=== PATIENT | male | born 1950 | race Caucasian/White ===

== ENCOUNTER 2018-05-14 07:13 | Inpatient (IN) ==
[2018-05-14] MEDS ORDERED: Sod Chloride 0.9% Inj 1,000 ML IV.SIG ONE (07:47)
[2018-05-14] MEDS ORDERED: Famotidine PF Inj 20 MG/2 ML Vial IV.PUSH ONE (07:47)
--- NOTE | 2018-05-14 07:51 | ED ---
HPI General Chief Complaint: Abdominal Pain Stated Complaint: Upper abd pain x last night Time Seen by Provider: 05/14/18 07:47 Source: patient Mode of arrival: ambulatory Limitations: no limitations History of Present Illness HPI narrative: 67-year-old male patient with history of esophagitis and gastritis, diabetes, presents to the ER today with 1 day history of nausea, epigastric abdominal pains which she currently states that 8 out of 10. He states that last night he took antacids and it did get a little bit better for him. He denies any vomiting, fevers, diarrhea, or other symptoms. He states it feels like a fullness almost like gas. Related Data Home Medications Medication Instructions Recorded Confirmed aspirin [Aspirin Low Dose] 1 tab PO DAILY 05/14/18 05/14/18 atorvastatin 10 mg PO DAILY 05/14/18 05/14/18 canagliflozin [Invokana] 1 tab PO DAILY 05/14/18 05/14/18 doxazosin 8 mg PO DAILY 05/14/18 05/14/18 glimepiride 2 mg PO TID 05/14/18 05/14/18 metformin 500 mg PO TID 05/14/18 05/14/18 pantoprazole 40 mg PO DAILY 05/14/18 05/14/18 Allergies Allergy/AdvReac Type Severity Reaction Status Date / Time shellfish derived Allergy Severe Swelling Verified 05/14/18 07:20 of Lip/Tongue/Throat penicillin G Allergy Mild HIVES Verified 05/14/18 07:20 Review of Systems Except as stated in HPI: all other systems reviewed are negative [facility] Medical History Medical History Diabetes (Acute) GERD (gastroesophageal reflux disease) (Acute) High cholesterol (Acute) History of seizure (Acute) Surgical History Surgical History History of rotator cuff surgery (Acute) Status post correction of deviated nasal septum (Acute) Family History Family History Mother History of pancreatic cancer Father History of heart disease History of diabetes mellitus Social History Social History Substance History: No History of Abuse Second Hand Smoke Exposure: No Smoking Status: Former smoker Tobacco Type: Cigarettes Number of Pack-Years (if former smoker): 70 How Often Do You Have a Drink Containing Alcohol: Monthly or less Recent Travel in [facility] within the Last 8 Weeks: No Recent Out of Country Travel within the Last 8 Weeks: No Immunization History Tetanus Immunization: Unsure Hx Influenza Vaccine This Season: Yes Exam Narrative Exam Narrative: GENERAL: Well-developed elderly white male patient currently in mild distress. Awake and oriented 3. SKIN: Focused skin assessment warm/dry. HEAD: Atraumatic. Normocephalic. EYES: Pupils equal and round. No scleral icterus. No injection or drainage. ENT: No nasal bleeding or discharge. Mucous membranes pink and moist. NECK: Trachea midline. No JVD. CARDIOVASCULAR: Regular rate and rhythm. No murmur appreciated. RESPIRATORY: No accessory muscle use. Clear to auscultation. Breath sounds equal bilaterally. GASTROINTESTINAL: Abdomen soft, mild epigastric tenderness without guarding or rebound, nondistended. Hepatic and splenic margins not palpable. MUSCULOSKELETAL: No obvious deformities. No clubbing. No cyanosis. No edema. NEUROLOGICAL: Awake and alert. No obvious cranial nerve deficits. Motor grossly within normal limits. Normal speech. PSYCHIATRIC: Appropriate mood and affect; insight and judgment normal. Course Initial Documented Vital Signs Temperature 99.3 F 05/14/18 07:15 Pulse Rate 96 H 05/14/18 07:15 Respiratory Rate 18 05/14/18 07:15 Blood Pressure 120/59 L 05/14/18 07:15 Pulse Oximetry 97 05/14/18 07:15 Last Documented Vital Signs Temperature 98.5 F 05/17/18 04:00 Pulse Rate 54 L 05/17/18 05:55 Respiratory Rate 18 05/17/18 05:55 Blood Pressure 182/86 H 05/17/18 05:55 Pulse Oximetry 97 05/17/18 04:00 Sign Out Sign Out Data: Patient Sign Out occurred on 05/14/18 at 08:53. Patient's care was discussed, and care was transferred from Keturah Botello MD to Myriam Reyes DO. Sign Out Comment: awaiting labs. s/o to dr. reyes ar 7am. Last updated by Keturah Botello MD at 05/14/18 08:49 Post-Handoff Eval: This patient was initially evaluated by previous provider Dr. Harris and signed out to me to follow up labs at change of shift. 67yo M with epigastric abdominal pain since 12:30am associated with nausea and chills. Abdominal pain radiates throughout abdomen. Labs reviewed, no leukocytosis. troponin negative. Glucose is elevated at 298. Normal CO2. Lipase is normal. Total bilirubin is elevated at 3.1. AST is elevated at 1386. ALT is elevated at 965. Alk phos is elevated at 145. Liver enzymes are more elevated than baseline and this is new. UA showed no leukocyte or nitrate. Pt reevaluated at bedside and has epigastric abdominal tenderness and some RLQ ttp as well. Will do CT abd/pelvis. Pt had endoscopy and colonoscopy last year and said there was some pathology with esophagus. Said he follows with [facility]. CT a/p showed mildly distended gallbladder with probable trace pericholecystic fluid. Consider ultrasound for better evaluation of the bladder if there is persistent concern. Normal appendix. Hepatic steatosis. Pt still nauseous so given another dose of zofran. Pain has improved. Pt reevaluated at bedside and does have mild RUQ ttp, mainly epigastric. Said his pain moves around. US gallbladder showed diffuse gallbladder wall thickening. No intraluminal mass or stone visualized in common bile duct. Will admit patient for acute cholecystitis. Discussed with Dr. Brown from general surgery and he recommends admitting patient to medicine, MRCP, GI consult and he will also consult. Discussed with Edu MANN, and accepted to Dr. Wilburn's service. Medical Decision Making MDM Narrative Medical decision making narrative: Please see sign out section. Differential Diagnosis Differential Diagnosis: Gastritis vs. pancreatitis vs. peptic ulcer disease Lab Data Result diagrams: 05/16/18 07:15 05/17/18 06:20 Lab Results 05/14/18 05/14/18 05/14/18 Range/Units 06:50 07:45 07:45 CBC w Diff Auto diff final WBC 8.5 (4.0-11.0) th/mm3 RBC 5.53 (4.50-5.90) mil/mm3 Hgb 17.0 (13.0-17.0) gm/dL Hct 51.0 (39.0-51.0) % MCV 92.2 (80.0-100.0) fL MCH 30.8 (27.0-34.0) pg MCHC 33.3 (32.0-36.0) % RDW 12.9 (11.6-17.2) % Plt Count 160 (150-450) th/mm3 MPV 9.7 (7.0-11.0) fL Neut % (Auto) 88.7 H (16.0-70.0) % Lymph % (Auto) 4.1 L (9.0-44.0) % Charles % (Auto) 5.4 (0.0-8.0) % Eos % (Auto) 0.4 (0.0-4.0) % Baso % (Auto) 1.4 (0.0-2.0) % Neut # (Auto) 7.6 (1.8-7.7) th/mm3 Lymph # (Auto) 0.3 L (1.0-4.8) th/mm3 Charles # (Auto) 0.5 (0.0-0.9) th/mm3 Eos # (Auto) 0.0 (0.0-0.4) th/mm3 Baso # (Auto) 0.1 (0.0-0.2) th/mm3 WBC Differential . Differential Comment . Sodium 136 (136-145) meq/L Potassium 3.9 (3.5-5.1) meq/L Chloride 102 (98-107) meq/L Carbon Dioxide 23.0 (21.0-32.0) meq/L Anion Gap 11 (5-15) meq/L BUN 21 H (7-18) mg/dL Creatinine 1.30 (0.60-1.30) mg/dL Estimated GFR 55 L (>89) mL/min POC Glucose (68-110) mg/dl Random Glucose 298 H (74-106) mg/dL Calcium 9.0 (8.5-10.1) mg/dL Total Bilirubin 3.1 H (0.2-1.0) mg/dL AST 1386 H (15-37) U/L ALT 965 H (12-78) U/L Alkaline Phosphatase 145 H (45-117) U/L Troponin I Less than 0.02 L (0.02-0.05) ng/mL Total Protein 7.5 (6.4-8.2) g/dL Albumin 4.0 (3.4-5.0) g/dL Lipase 142 (73-393) U/L Ur Collection Type Voided Urine Color Yellow (Yellw/Straw) Urine Clarity Clear (Clear) Urine pH 6.0 (5.0-8.5) Ur Specific Wise Less/equal 1.005 (1.002-1.035) Urine Protein Negative (Neg-Trace) mg/dL Urine Glucose (UA) 1000 or greater H (Negative) mg/dL Urine Ketones 15 H (Negative) mg/dL Urine Occult Blood Trace (Negative) Urine Nitrate Negative (Negative) Urine Bilirubin Negative (Negative) Urine Urobilinogen 2.0 H (Less than 2) mg/dL Ur Leukocyte Esterase Negative (Negative) Urine WBC 0-5 (0-5) /hpf Ur Squamous Epith Cells 0-5 (0-5) /hpf Micro UA Comment Culture not ind Urine Culture Comments Culture not ind Hepatitis A IgM Ab (Nonreactive) Hep Bs Antigen (Nonreactive) Hep B Core IgM Ab (Nonreactive) Hep C IgG Ab (Nonreactive) 05/14/18 05/14/18 05/14/18 Range/Units 13:16 17:30 18:00 CBC w Diff Auto diff final WBC 10.8 (4.0-11.0) th/mm3 RBC 5.21 (4.50-5.90) mil/mm3 Hgb 16.0 (13.0-17.0) gm/dL Hct 46.7 (39.0-51.0) % MCV 89.7 (80.0-100.0) fL MCH 30.8 (27.0-34.0) pg MCHC 34.3 (32.0-36.0) % RDW 13.6 (11.6-17.2) % Plt Count 160 (150-450) th/mm3 MPV 8.9 (7.0-11.0) fL Neut % (Auto) 90.0 H (16.0-70.0) % Lymph % (Auto) 3.2 L (9.0-44.0) % Charles % (Auto) 5.2 (0.0-8.0) % Eos % (Auto) 0.2 (0.0-4.0) % Baso % (Auto) 1.4 (0.0-2.0) % Neut # (Auto) 9.7 H (1.8-7.7) th/mm3 Lymph # (Auto) 0.3 L (1.0-4.8) th/mm3 Charles # (Auto) 0.6 (0.0-0.9) th/mm3 Eos # (Auto) 0.0 (0.0-0.4) th/mm3 Baso # (Auto) 0.2 (0.0-0.2) th/mm3 WBC Differential . Differential Comment . Sodium (136-145) meq/L Potassium (3.5-5.1) meq/L Chloride (98-107) meq/L Carbon Dioxide (21.0-32.0) meq/L Anion Gap (5-15) meq/L BUN (7-18) mg/dL Creatinine (0.60-1.30) mg/dL Estimated GFR (>89) mL/min POC Glucose 237 H 183 H (68-110) mg/dl Random Glucose (74-106) mg/dL Calcium (8.5-10.1) mg/dL Total Bilirubin (0.2-1.0) mg/dL AST (15-37) U/L ALT (12-78) U/L Alkaline Phosphatase (45-117) U/L Troponin I (0.02-0.05) ng/mL Total Protein (6.4-8.2) g/dL Albumin (3.4-5.0) g/dL Lipase (73-393) U/L Ur Collection Type Urine Color (Yellw/Straw) Urine Clarity (Clear) Urine pH (5.0-8.5) Ur Specific Wise (1.002-1.035) Urine Protein (Neg-Trace) mg/dL Urine Glucose (UA) (Negative) mg/dL Urine Ketones (Negative) mg/dL Urine Occult Blood (Negative) Urine Nitrate (Negative) Urine Bilirubin (Negative) Urine Urobilinogen (Less than 2) mg/dL Ur Leukocyte Esterase (Negative) Urine WBC (0-5) /hpf Ur Squamous Epith Cells (0-5) /hpf Micro UA Comment Urine Culture Comments Hepatitis A IgM Ab (Nonreactive) Hep Bs Antigen (Nonreactive) Hep B Core IgM Ab (Nonreactive) Hep C IgG Ab (Nonreactive) 05/14/18 05/14/18 05/15/18 Range/Units 18:00 20:06 07:20 CBC w Diff WBC (4.0-11.0) th/mm3 RBC (4.50-5.90) mil/mm3 Hgb (13.0-17.0) gm/dL Hct (39.0-51.0) % MCV (80.0-100.0) fL MCH (27.0-34.0) pg MCHC (32.0-36.0) % RDW (11.6-17.2) % Plt Count (150-450) th/mm3 MPV (7.0-11.0) fL Neut % (Auto) (16.0-70.0) % Lymph % (Auto) (9.0-44.0) % Charles % (Auto) (0.0-8.0) % Eos % (Auto) (0.0-4.0) % Baso % (Auto) (0.0-2.0) % Neut # (Auto) (1.8-7.7) th/mm3 Lymph # (Auto) (1.0-4.8) th/mm3 Charles # (Auto) (0.0-0.9) th/mm3 Eos # (Auto) (0.0-0.4) th/mm3 Baso # (Auto) (0.0-0.2) th/mm3 WBC Differential Differential Comment Sodium 140 (136-145) meq/L Potassium 3.7 (3.5-5.1) meq/L Chloride 106 (98-107) meq/L Carbon Dioxide 23.5 (21.0-32.0) meq/L Anion Gap 11 (5-15) meq/L BUN 19 H (7-18) mg/dL Creatinine 1.30 (0.60-1.30) mg/dL Estimated GFR 55 L (>89) mL/min POC Glucose 184 H (68-110) mg/dl Random Glucose 103 D (74-106) mg/dL Calcium 8.1 L D (8.5-10.1) mg/dL Total Bilirubin 5.2 H (0.2-1.0) mg/dL AST 384 H (15-37) U/L ALT 660 H (12-78) U/L Alkaline Phosphatase 123 H (45-117) U/L Troponin I (0.02-0.05) ng/mL Total Protein 6.7 D (6.4-8.2) g/dL Albumin 3.2 L D (3.4-5.0) g/dL Lipase (73-393) U/L Ur Collection Type Urine Color (Yellw/Straw) Urine Clarity (Clear) Urine pH (5.0-8.5) Ur Specific Wise (1.002-1.035) Urine Protein (Neg-Trace) mg/dL Urine Glucose (UA) (Negative) mg/dL Urine Ketones (Negative) mg/dL Urine Occult Blood (Negative) Urine Nitrate (Negative) Urine Bilirubin (Negative) Urine Urobilinogen (Less than 2) mg/dL Ur Leukocyte Esterase (Negative) Urine WBC (0-5) /hpf Ur Squamous Epith Cells (0-5) /hpf Micro UA Comment Urine Culture Comments Hepatitis A IgM Ab Nonreactive (Nonreactive) Hep Bs Antigen Nonreactive (Nonreactive) Hep B Core IgM Ab Nonreactive (Nonreactive) Hep C IgG Ab Nonreactive (Nonreactive) 05/15/18 05/15/18 05/15/18 Range/Units 11:18 13:55 15:49 CBC w Diff Auto diff final WBC 6.6 (4.0-11.0) th/mm3 RBC 4.98 (4.50-5.90) mil/mm3 Hgb 15.6 (13.0-17.0) gm/dL Hct 45.9 (39.0-51.0) % MCV 92.2 (80.0-100.0) fL MCH 31.3 (27.0-34.0) pg MCHC 33.9 (32.0-36.0) % RDW 13.4 (11.6-17.2) % Plt Count 132 L (150-450) th/mm3 MPV 8.9 (7.0-11.0) fL Neut % (Auto) 79.3 H (16.0-70.0) % Lymph % (Auto) 8.8 L (9.0-44.0) % Charles % (Auto) 8.6 H (0.0-8.0) % Eos % (Auto) 2.7 (0.0-4.0) % Baso % (Auto) 0.6 (0.0-2.0) % Neut # (Auto) 5.2 (1.8-7.7) th/mm3 Lymph # (Auto) 0.6 L (1.0-4.8) th/mm3 Charles # (Auto) 0.6 (0.0-0.9) th/mm3 Eos # (Auto) 0.2 (0.0-0.4) th/mm3 Baso # (Auto) 0.0 (0.0-0.2) th/mm3 WBC Differential . Differential Comment . Sodium (136-145) meq/L Potassium (3.5-5.1) meq/L Chloride (98-107) meq/L Carbon Dioxide (21.0-32.0) meq/L Anion Gap (5-15) meq/L BUN (7-18) mg/dL Creatinine (0.60-1.30) mg/dL Estimated GFR (>89) mL/min POC Glucose 123 H 225 H (68-110) mg/dl Random Glucose (74-106) mg/dL Calcium (8.5-10.1) mg/dL Total Bilirubin (0.2-1.0) mg/dL AST (15-37) U/L ALT (12-78) U/L Alkaline Phosphatase (45-117) U/L Troponin I (0.02-0.05) ng/mL Total Protein (6.4-8.2) g/dL Albumin (3.4-5.0) g/dL Lipase (73-393) U/L Ur Collection Type Urine Color (Yellw/Straw) Urine Clarity (Clear) Urine pH (5.0-8.5) Ur Specific Wise (1.002-1.035) Urine Protein (Neg-Trace) mg/dL Urine Glucose (UA) (Negative) mg/dL Urine Ketones (Negative) mg/dL Urine Occult Blood (Negative) Urine Nitrate (Negative) Urine Bilirubin (Negative) Urine Urobilinogen (Less than 2) mg/dL Ur Leukocyte Esterase (Negative) Urine WBC (0-5) /hpf Ur Squamous Epith Cells (0-5) /hpf Micro UA Comment Urine Culture Comments Hepatitis A IgM Ab (Nonreactive) Hep Bs Antigen (Nonreactive) Hep B Core IgM Ab (Nonreactive) Hep C IgG Ab (Nonreactive) 05/15/18 05/16/18 05/16/18 Range/Units 20:17 07:15 07:15 CBC w Diff Auto diff final WBC 5.5 (4.0-11.0) th/mm3 RBC 4.95 (4.50-5.90) mil/mm3 Hgb 15.0 (13.0-17.0) gm/dL Hct 44.2 (39.0-51.0) % MCV 89.3 (80.0-100.0) fL MCH 30.3 (27.0-34.0) pg MCHC 34.0 (32.0-36.0) % RDW 13.8 (11.6-17.2) % Plt Count 136 L (150-450) th/mm3 MPV 9.7 (7.0-11.0) fL Neut % (Auto) 73.0 H (16.0-70.0) % Lymph % (Auto) 12.7 (9.0-44.0) % Charles % (Auto) 9.9 H (0.0-8.0) % Eos % (Auto) 3.4 (0.0-4.0) % Baso % (Auto) 1.0 (0.0-2.0) % Neut # (Auto) 4.0 (1.8-7.7) th/mm3 Lymph # (Auto) 0.7 L (1.0-4.8) th/mm3 Charles # (Auto) 0.5 (0.0-0.9) th/mm3 Eos # (Auto) 0.2 (0.0-0.4) th/mm3 Baso # (Auto) 0.1 (0.0-0.2) th/mm3 WBC Differential . Differential Comment . Sodium 139 (136-145) meq/L Potassium 3.8 (3.5-5.1) meq/L Chloride 106 (98-107) meq/L Carbon Dioxide 23.3 (21.0-32.0) meq/L Anion Gap 10 (5-15) meq/L BUN 20 H (7-18) mg/dL Creatinine 0.96 (0.60-1.30) mg/dL Estimated GFR 78 L (>89) mL/min POC Glucose 214 H (68-110) mg/dl Random Glucose 150 H (74-106) mg/dL Calcium 8.2 L (8.5-10.1) mg/dL Total Bilirubin 2.5 H (0.2-1.0) mg/dL AST 167 H (15-37) U/L ALT 423 H (12-78) U/L Alkaline Phosphatase 154 H (45-117) U/L Troponin I (0.02-0.05) ng/mL Total Protein 6.4 (6.4-8.2) g/dL Albumin 3.0 L (3.4-5.0) g/dL Lipase (73-393) U/L Ur Collection Type Urine Color (Yellw/Straw) Urine Clarity (Clear) Urine pH (5.0-8.5) Ur Specific Wise (1.002-1.035) Urine Protein (Neg-Trace) mg/dL Urine Glucose (UA) (Negative) mg/dL Urine Ketones (Negative) mg/dL Urine Occult Blood (Negative) Urine Nitrate (Negative) Urine Bilirubin (Negative) Urine Urobilinogen (Less than 2) mg/dL Ur Leukocyte Esterase (Negative) Urine WBC (0-5) /hpf Ur Squamous Epith Cells (0-5) /hpf Micro UA Comment Urine Culture Comments Hepatitis A IgM Ab (Nonreactive) Hep Bs Antigen (Nonreactive) Hep B Core IgM Ab (Nonreactive) Hep C IgG Ab (Nonreactive) 05/16/18 05/16/18 05/16/18 Range/Units 08:02 11:53 17:12 CBC w Diff WBC (4.0-11.0) th/mm3 RBC (4.50-5.90) mil/mm3 Hgb (13.0-17.0) gm/dL Hct (39.0-51.0) % MCV (80.0-100.0) fL MCH (27.0-34.0) pg MCHC (32.0-36.0) % RDW (11.6-17.2) % Plt Count (150-450) th/mm3 MPV (7.0-11.0) fL Neut % (Auto) (16.0-70.0) % Lymph % (Auto) (9.0-44.0) % Charles % (Auto) (0.0-8.0) % Eos % (Auto) (0.0-4.0) % Baso % (Auto) (0.0-2.0) % Neut # (Auto) (1.8-7.7) th/mm3 Lymph # (Auto) (1.0-4.8) th/mm3 Charles # (Auto) (0.0-0.9) th/mm3 Eos # (Auto) (0.0-0.4) th/mm3 Baso # (Auto) (0.0-0.2) th/mm3 WBC Differential Differential Comment Sodium (136-145) meq/L Potassium (3.5-5.1) meq/L Chloride (98-107) meq/L Carbon Dioxide (21.0-32.0) meq/L Anion Gap (5-15) meq/L BUN (7-18) mg/dL Creatinine (0.60-1.30) mg/dL Estimated GFR (>89) mL/min POC Glucose 134 H 119 H 177 H (68-110) mg/dl Random Glucose (74-106) mg/dL Calcium (8.5-10.1) mg/dL Total Bilirubin (0.2-1.0) mg/dL AST (15-37) U/L ALT (12-78) U/L Alkaline Phosphatase (45-117) U/L Troponin I (0.02-0.05) ng/mL Total Protein (6.4-8.2) g/dL Albumin (3.4-5.0) g/dL Lipase (73-393) U/L Ur Collection Type Urine Color (Yellw/Straw) Urine Clarity (Clear) Urine pH (5.0-8.5) Ur Specific Wise (1.002-1.035) Urine Protein (Neg-Trace) mg/dL Urine Glucose (UA) (Negative) mg/dL Urine Ketones (Negative) mg/dL Urine Occult Blood (Negative) Urine Nitrate (Negative) Urine Bilirubin (Negative) Urine Urobilinogen (Less than 2) mg/dL Ur Leukocyte Esterase (Negative) Urine WBC (0-5) /hpf Ur Squamous Epith Cells (0-5) /hpf Micro UA Comment Urine Culture Comments Hepatitis A IgM Ab (Nonreactive) Hep Bs Antigen (Nonreactive) Hep B Core IgM Ab (Nonreactive) Hep C IgG Ab (Nonreactive) 05/16/18 05/17/18 Range/Units 23:05 06:20 CBC w Diff WBC (4.0-11.0) th/mm3 RBC (4.50-5.90) mil/mm3 Hgb (13.0-17.0) gm/dL Hct (39.0-51.0) % MCV (80.0-100.0) fL MCH (27.0-34.0) pg MCHC (32.0-36.0) % RDW (11.6-17.2) % Plt Count (150-450) th/mm3 MPV (7.0-11.0) fL Neut % (Auto) (16.0-70.0) % Lymph % (Auto) (9.0-44.0) % Charles % (Auto) (0.0-8.0) % Eos % (Auto) (0.0-4.0) % Baso % (Auto) (0.0-2.0) % Neut # (Auto) (1.8-7.7) th/mm3 Lymph # (Auto) (1.0-4.8) th/mm3 Charles # (Auto) (0.0-0.9) th/mm3 Eos # (Auto) (0.0-0.4) th/mm3 Baso # (Auto) (0.0-0.2) th/mm3 WBC Differential Differential Comment Sodium 140 (136-145) meq/L Potassium 3.7 (3.5-5.1) meq/L Chloride 107 (98-107) meq/L Carbon Dioxide (21.0-32.0) meq/L Anion Gap (5-15) meq/L BUN (7-18) mg/dL Creatinine (0.60-1.30) mg/dL Estimated GFR (>89) mL/min POC Glucose 179 H (68-110) mg/dl Random Glucose (74-106) mg/dL Calcium (8.5-10.1) mg/dL Total Bilirubin (0.2-1.0) mg/dL AST (15-37) U/L ALT (12-78) U/L Alkaline Phosphatase (45-117) U/L Troponin I (0.02-0.05) ng/mL Total Protein (6.4-8.2) g/dL Albumin (3.4-5.0) g/dL Lipase (73-393) U/L Ur Collection Type Urine Color (Yellw/Straw) Urine Clarity (Clear) Urine pH (5.0-8.5) Ur Specific Wise (1.002-1.035) Urine Protein (Neg-Trace) mg/dL Urine Glucose (UA) (Negative) mg/dL Urine Ketones (Negative) mg/dL Urine Occult Blood (Negative) Urine Nitrate (Negative) Urine Bilirubin (Negative) Urine Urobilinogen (Less than 2) mg/dL Ur Leukocyte Esterase (Negative) Urine WBC (0-5) /hpf Ur Squamous Epith Cells (0-5) /hpf Micro UA Comment Urine Culture Comments Hepatitis A IgM Ab (Nonreactive) Hep Bs Antigen (Nonreactive) Hep B Core IgM Ab (Nonreactive) Hep C IgG Ab (Nonreactive) Imaging Data Radiologist's impression: Chest X-Ray 05/14/18 07:47 CONCLUSION: 1. No acute cardiopulmonary disease. Abdomen/Pelvis CT 05/14/18 08:56 CONCLUSION: 1. Mildly distended gallbladder with probable trace pericholecystic fluid. Consider ultrasound examination for better evaluation of the gallbladder if there is persistent significant clinical concern. 2. Hepatic steatosis. 3. Colonic diverticulosis without evidence for diverticulitis. 4. Normal appendix. Gallbladder Ultrasound 05/14/18 09:58 CONCLUSION: 1. Diffuse gallbladder wall thickening. 2. Increased hepatic echogenicity, potentially indicative of steatosis. Cholangiopancreatography MRI 05/14/18 12:37 CONCLUSION: 1. No stones identified within the biliary system. The common bile duct is normal in caliber at 2.5 mm. 2. Abnormal appearance of the gallbladder with mild gallbladder wall thickening and pericholecystic fluid. In the appropriate clinical setting this would raise the concern for a possible cholecystitis ECG Data EKG Prior to Arrival: No Attestation: I personally reviewed and interpreted this ECG as follows: Interpretation: NSR 68bpm. Normal axis. Mild ST depression diffusely. No significant ST elevation. Discharge Plan Discharge Disposition Patient Disposition: 30 Still Patient Discharge Condition Condition: Stable Discharge Details Diagnosis: Acute cholecystitis Physicians Team ED Provider: Myriam Reyes Primary Care Provider: Lm Srivastava Attending Provider: Nabil Wilburn Discharge Interventions Interventions: ED Discharge Assessment Last Done: 05/14/18 13:25 Vital Signs Last Done: 05/14/18 12:33 Status ED Status: Left Department Discharge Information Discharge Date/Time: 05/14/18 13:27
[2018-05-14 08:04] LABS: Bilirubin,Urine Negative (Negative); Clarity,Urine Clear (Clear); Color,Urine Yellow (Yellw/Straw); Leukocyte Esterase,Urine Negative (Negative); Nitrite,Urine Negative (Negative); Specific Gravity,Urine Less/Equal 1.005 (1.002-1.035)
[2018-05-14 08:11] LABS: Squamous Epithelial Cell,Urine 0-5 /hpf (0-5); WBC,Urine 0-5 /hpf (0-5)
[2018-05-14 08:12] LABS: Chloride 102 meq/L (98-107); Potassium 3.9 meq/L (3.5-5.1); Sodium 136 meq/L (136-145)
--- NOTE | 2018-05-14 08:12 | XR ---
EXAM DATE: 05/14/2018 8:08 AM EDT AGE/SEX: 67 years / Male INDICATIONS: Chest pain CLINICAL DATA: This is the patient's initial encounter. Patient reports that signs and symptoms have been present for 1 day and indicates a pain score of 8/10. MEDICAL/SURGICAL HISTORY: Gastroesophageal reflux disease. Diabetes. Hypercholesterolemia. No ne. COMPARISON: POI, XR CHEST PA AND LAT, 10/14/2016. . FINDINGS: A single AP view of the chest demonstrates the lungs to be symmetrically aerated without evidence of mass, infiltrate or effusion. The cardiomediastinal contours are unremarkable. Osseous structures a re intact. CONCLUSION: 1. No acute cardiopulmonary disease. Electronically signed by: Vj Spangler MD 05/14/2018 8:10 AM EDT
[2018-05-14 08:16] LABS: Anion Gap 11 meq/L (5-15); Blood Urea Nitrogen 21 mg/dL (7-18); Glucose,Random 298 mg/dL (74-106); Lipase 142 U/L (73-393)
[2018-05-14 08:18] LABS: Alanine Aminotransferase 965 U/L (12-78)
[2018-05-14 08:19] LABS: Glomerular Filtration Rate 55 mL/min (>89)
[2018-05-14 08:20] LABS: Total Protein 7.5 g/dL (6.4-8.2)
[2018-05-14 08:22] LABS: Alkaline Phosphatase 145 U/L (45-117)
[2018-05-14 08:26] LABS: Aspartate Aminotransferase 1386 U/L (15-37)
[2018-05-14 08:43] LABS: Baso # (Auto) 0.1 th/mm3 (0.0-0.2); Baso % (Auto) 1.4 % (0.0-2.0); Eos % (Auto) 0.4 % (0.0-4.0); Lymph # (Auto) 0.3 th/mm3 (1.0-4.8); Lymph % (Auto) 4.1 % (9.0-44.0); Mean Corpuscular HGB Conc 33.3 % (32.0-36.0); Mean Corpuscular Hemoglobin 30.8 pg (27.0-34.0); Mean Corpuscular Volume 92.2 fL (80.0-100.0); Mean Platelet Volume 9.7 fL (7.0-11.0); Mono # (Auto) 0.5 th/mm3 (0.0-0.9); Mono % (Auto) 5.4 % (0.0-8.0); Neut # (Auto) 7.6 th/mm3 (1.8-7.7); Neut % (Auto) 88.7 % (16.0-70.0); Platelet Count 160 th/mm3 (150-450); Red Blood Count 5.53 mil/mm3 (4.50-5.90); Red Cell Distribution Width 12.9 % (11.6-17.2); White Blood Count 8.5 th/mm3 (4.0-11.0)
--- NOTE | 2018-05-14 09:53 | CT ---
EXAM DATE: 05/14/2018 9:44 AM EDT AGE/SEX: 67 years / Male INDICATIONS: Epigastric pain. Nausea. CLINICAL DATA: This is the patient's initial encounter. Patient reports that signs and symptoms have been present for 1 day and indicates a pain score of 7/10. MEDICAL/SURGICAL HISTORY: Gastroesophageal reflux disease. Diabetes. Carcinoma, prostatic. No ne. ORAL CONTRAST: No oral contrast ingested. RADIATION DOSE: 9.29 CTDI (mGy) COMPARISON: PO[facility], CT ABDOMEN AND PELVIS W AND W/O CONTRAST, 09/22/2017. . TECHNIQUE: Multiple contiguous axial images were obtained through the abdomen and pelvis following b olus infusion of 90 ml Omnipaque 350 (iohexol) nonionic water-soluble contrast as a single exam dos e. No oral contrast ingested. Using automated exposure control and adjustment of the mA and/or kV ac cording to patient size, radiation dose was kept as low as reasonably achievable to obtain optimal di agnostic quality images. DICOM format image data is available electronically for review and comparis on. FINDINGS: LOWER LUNGS: The visualized lower lungs are clear. LIVER: Diffusely decreased hepatic density without focal mass or intrahepatic ductal dilatation. Gal lbladder is mildly distended with probable trace pericholecystic fluid. SPLEEN: Homogeneous density without enlargement. PANCREAS: Partially fatty replaced without mass or calcification. KIDNEYS: Kidneys demonstrate symmetrical enhancement and are symmetrical in size without evidence fo r radiopaque renal calculi or hydronephrosis. ADRENAL GLANDS: Unremarkable. AORTA: Makenna-aneurysmal. BOWEL/MESENTERY: Mild sigmoid diverticulosis and scattered colonic diverticula without inflammatory change. No significantly dilated bowel loops. Appendix is visualized and normal in appearance. No syl e fluid or drainable fluid collections. No free air. ABDOMINAL WALL: Intact. RETROPERITONEUM: No evidence of adenopathy in the retrocrural, para-aortic, or deep pelvic regions. BLADDER: Contours are smooth. REPRODUCTIVE: Nonspecific enlargement containing radiation seeds. BONY STRUCTURES: Degenerative spondylosis of the lower lumbar spine. CONCLUSION: 1. Mildly distended gallbladder with probable trace pericholecystic fluid. Consider ultrasound exami nation for better evaluation of the gallbladder if there is persistent significant clinical concern. 2. Hepatic steatosis. 3. Colonic diverticulosis without evidence for diverticulitis. 4. Normal appendix. Electronically signed by: Vj Spangler MD 05/14/2018 9:52 AM EDT
--- NOTE | 2018-05-14 09:58 | ECG ---
Date Performed: 05/14/2018 Time Performed: 07:55:31 PTAGE: 67 years EKG: Sinus rhythm NONSPECIFIC T-WAVE ABNORMALITY BORDERLINE ECG PREVIOUS TRACING : 09/17/2011 19.59 Compared to previous tracing, nonspecific T wave abnormalit y is now present. DOCTOR: Rahul Gilliam Interpretating Date/Time 05/14/2018 09:57:01
--- NOTE | 2018-05-14 11:40 | US ---
EXAM DATE: 05/14/2018 11:21 AM EDT AGE/SEX: 67 years / Male INDICATIONS: Right upper quadrant pain. CLINICAL DATA: This is the patient's initial encounter. Patient reports that signs and symptoms have been present for 1 day and indicates a pain score of 3/10. MEDICAL/SURGICAL HISTORY: Diabetes. Gastroesophageal reflux disease. Hypercholesterolemia. No ne. COMPARISON: [facility], CT ABDOMEN & PELVIS W CONTRAST, 05/14/2018. . MEASUREMENTS: Liver:__ 18.1 cm. Common Bile Duct:__ 5mm. FINDINGS: Liver: Increased echotexture without focal lesion or ductal dilation. Portal Vein: Hepatopedal flow seen in portal vein. Common Duct: No intraluminal mass or stone visualized. Gallbladder: No mobile stones. Mild diffuse wall thickening. Pancreas: Unremarkable Right Kidney: Normal echotexture and cortical thickness. No mass or hydronephrosis. Other: CONCLUSION: 1. Diffuse gallbladder wall thickening. 2. Increased hepatic echogenicity, potentially indicative of steatosis. Electronically signed by: Campos Ibarra MD 05/14/2018 11:39 AM EDT
[2018-05-14] MEDS ORDERED: Dextrose 50% in Water 50 ML Vial IV.PUSH PRN (12:43)
[2018-05-14] MEDS ORDERED: Morphine Sulfate Inj 2 MG/ML Vial IV.PUSH PRN (12:45)
--- NOTE | 2018-05-14 14:22 | P.HP ---
History of Present Illness Primary Care Physician: Lm Srivastava MD Chief Complaint: Abdominal pain History of Present Illness: 67-year-old male with known history of hyperlipidemia, diabetes who presented to the hospital because of acute onset abdominal pain. Patient states that he was in his normal state of health until last evening approximately 12 to 12:30 AM. When he got sudden onset abdominal pain located in the upper abdomen. Patient cannot lay flat, he states that the pain was so severe he had to get up and move around. It hurt whenever he walks. He cannot sit still. Pain was worse when he laid down. He did take 2 indigestion pills which did help with some of the discomfort. He was able to lay down to go to sleep. Then he was woke up at approximately 4 AM this morning with the severe pain again. Again it was a 8/10 on a pain scale where he could not get comfortable no matter what position he got his body into. He came to emergency department for evaluation. Patient was found to have abnormalities with elevated liver enzymes as well as signs of cholecystitis. ER physician did contact general surgery about the findings. They recommended that the patient undergo MRCP with GI consult for further evaluation and management. Upon seeing the patient he appears to be feeling much better. Pain is controlled. Patient denied any nausea, vomiting, diarrhea, constipation, melena, hematochezia. - Diagnosis (1) Cholecystitis (2) Elevated liver enzymes (3) Abdominal pain Inpatient Certification: I certify that the inpatient services were ordered in accordance with Medicare regulations governing the order. This includes certification that hospital inpatient services are reasonable and necessary and in the case of services not specified as inpatient-only under 42 CFR 419.22(n), that they are appropriately provided as inpatient services in accordance to with the 2-midnight benchmark under 43 CFR 412.3(e) Estimated Total Length of Stay (Days): 3 Plans for Post Hospital Care: Home Review of Systems All other systems reviewed negative except as stated in HPI Gastrointestinal: Reports abdominal pain, Reports nausea PMFSH - History History Provided By: Patient - Medical History Medical History: Medical History (Last Updated 05/14/18 @ 14:10 by MACKENZIE Deleon) Diabetes GERD (gastroesophageal reflux disease) High cholesterol History of seizure - Surgical History Surgical History: Surgical History (Last Updated 05/14/18 @ 14:10 by MACKENZIE Deleon) History of rotator cuff surgery Status post correction of deviated nasal septum - Family History Family History: Family History (Last Updated 05/14/18 @ 14:11 by MACKENZIE Deleon) Mother History of pancreatic cancer Father History of heart disease History of diabetes mellitus - Tobacco History Second Hand Smoke Exposure: No Tobacco Use In Past 30 Days: No Smoking Status: Former smoker Tobacco Type: Cigarettes Number of Pack Years (if former smoker): 70 - Alcohol History How Often Do You Have a Drink Containing Alcohol: Monthly or less - Substance Use History Substance History: No History of Abuse - Travel History Recent Travel in the [place] Within the Last 8 Weeks: No Recent Travel Out of the Country Within the Last 8 Weeks: No - Immunization History Tetanus Immunization: Unsure Hx Influenza Vaccine This Season: Yes Medications and Allergies Active Medications: Active Medications Dextrose (D50w Vial) 50 ml IV.PUSH UNSCH PRN PRN Reason: PER HYPOGLYCEMIA PROTOCOL Famotidine (Pepcid Pf Inj) 20 mg IV.PUSH Q12HR LEATHA Glucagon (Glucagon Inj) 1 mg OTHER PRN PRN PRN Reason: for Hypoglycemia Protocol Lactated Ringer's (Lr 1000 Ml Inj) 1,000 mls @ 125 mls/hr IV.CONT .Q8H LEATHA Last Admin: 05/14/18 12:57 Dose: 125 mls/hr Insulin Aspart (Novolog Insulin Correctional Sugar Inj) 0 unit SQ ACHS LEATHA; Protocol Morphine Sulfate (Morphine Inj) 2 mg IV.PUSH Q3H PRN PRN Reason: PAIN SCALE 1 TO 10 Ondansetron HCl (Zofran Inj) 4 mg IV.PUSH Q6H PRN PRN Reason: NAUSEA OR VOMITING Sodium Chloride (Ns Flush) 2 ml IV.FLUSH BID LEATHA Sodium Chloride (Ns Flush) 2 ml IV.FLUSH PRN PRN PRN Reason: FLUSH AFTER USING IV ACCESS Allergies Allergy/AdvReac Type Severity Reaction Status Date / Time shellfish derived Allergy Severe Swelling Verified 05/14/18 07:20 of Lip/Tongue/Throat penicillin G Allergy Mild HIVES Verified 05/14/18 07:20 Home Medications Medication Instructions Recorded Confirmed Type aspirin [Aspirin Low Dose] 1 tab PO DAILY 05/14/18 05/14/18 History atorvastatin 10 mg PO DAILY 05/14/18 05/14/18 History canagliflozin [Invokana] 1 tab PO DAILY 05/14/18 05/14/18 History doxazosin 8 mg PO DAILY 05/14/18 05/14/18 History glimepiride 2 mg PO TID 05/14/18 05/14/18 History metformin 500 mg PO TID 05/14/18 05/14/18 History pantoprazole 40 mg PO DAILY 05/14/18 05/14/18 History Exam Vital signs: Vital Signs 05/14/18 07:15 05/14/18 07:32 05/14/18 07:54 Temperature 99.3 F Pulse Rate 96 H 93 H Respiratory Rate 18 18 Blood Pressure 120/59 L 144/71 H Pulse Oximetry 97 96 97 05/14/18 09:07 05/14/18 12:33 05/14/18 13:56 Temperature 100.8 F H Pulse Rate 94 H 96 H 95 H Respiratory Rate 18 18 18 Blood Pressure 120/58 L 139/74 154/73 H Pulse Oximetry 96 99 96 Intake & Output 05/13/18 05/14/18 05/14/18 18:59 06:59 18:59 Intake Total 1000 / 1000 Output Total 550 / 550 Balance 450 / 450 Weight 74.3 kg Intake: IV 1000 / 1000 NS Inj 1,000 ML @ Wide Open IV. 1000 / 1000 SIG BOLUS ONE Rx#:[id number] Output: Urine 550 / 550 Narrative: GENERAL: Well-developed, well-nourished, in no acute distress. alert and orientated HEENT: Head is normocephalic without any lesions or masses noted. Facial features are symmetric. Eyes: Pupils equal round reactive to light. Extraocular muscles are intact. Conjunctivae were clear. Oropharyngeal: Pharynx without any erythema edema. Tongue is midline without deviation. Buccal mucosa is moist without any masses or lesions NECK: Supple without any masses. Trachea midline no deviation. No JVD, no bruits are appreciated CARDIAC: Regular rhythm, regular rate. S1/S2 are heard. No murmurs gallops or rubs. LUNGS: Clear to auscultation bilaterally. No wheeze, rhonchi or rales. No use of accessory muscles on inspiration or expiration. ABDOMEN: Soft, main tenderness is noted in the right upper quadrant. Negative Kaur.. Nondistended. Bowel sounds heard in all 4 quadrants. No organomegaly or masses. Negative rebound, negative guarding EXTREMITIES: No edema, pulses are equal bilaterally. No cyanosis or clubbing NEUROLOGY: Mood and affect appear appropriate. Cranial nerves II through XII grossly intact. Muscle strength 5/5 in upper and lower extremities bilaterally. Deep tendon reflexes are 2+ in upper and lower extremities bilaterally. Results - Labs CBC & Chem 7: 05/14/18 07:45 05/14/18 07:45 Labs: Laboratory Results - last 24 hr 05/14/18 05/14/18 05/14/18 06:50 07:45 07:45 CBC w Diff Auto diff final WBC 8.5 RBC 5.53 Hgb 17.0 Hct 51.0 MCV 92.2 MCH 30.8 MCHC 33.3 RDW 12.9 Plt Count 160 MPV 9.7 Neut % (Auto) 88.7 H Lymph % (Auto) 4.1 L [place] % (Auto) 5.4 Eos % (Auto) 0.4 Baso % (Auto) 1.4 Neut # (Auto) 7.6 Lymph # (Auto) 0.3 L [place] # (Auto) 0.5 Eos # (Auto) 0.0 Baso # (Auto) 0.1 WBC Differential . Differential Comment . Sodium 136 Potassium 3.9 Chloride 102 Carbon Dioxide 23.0 Anion Gap 11 BUN 21 H Creatinine 1.30 Estimated GFR 55 L POC Glucose Random Glucose 298 H Calcium 9.0 Total Bilirubin 3.1 H AST 1386 H ALT 965 H Alkaline Phosphatase 145 H Troponin I Less than 0.02 L Total Protein 7.5 Albumin 4.0 Lipase 142 Ur Collection Type Voided Urine Color Yellow Urine Clarity Clear Urine pH 6.0 Ur Specific [place] Less/equal 1.005 Urine Protein Negative Urine Glucose (UA) 1000 or greater H Urine Ketones 15 H Urine Occult Blood Trace Urine Nitrate Negative Urine Bilirubin Negative Urine Urobilinogen 2.0 H Ur Leukocyte Esterase Negative Urine WBC 0-5 Ur Squamous Epith Cells 0-5 Micro UA Comment Culture not ind Urine Culture Comments Culture not ind 05/14/18 13:16 CBC w Diff WBC RBC Hgb Hct MCV MCH MCHC RDW Plt Count MPV Neut % (Auto) Lymph % (Auto) [place] % (Auto) Eos % (Auto) Baso % (Auto) Neut # (Auto) Lymph # (Auto) [place] # (Auto) Eos # (Auto) Baso # (Auto) WBC Differential Differential Comment Sodium Potassium Chloride Carbon Dioxide Anion Gap BUN Creatinine Estimated GFR POC Glucose 237 H Random Glucose Calcium Total Bilirubin AST ALT Alkaline Phosphatase Troponin I Total Protein Albumin Lipase Ur Collection Type Urine Color Urine Clarity Urine pH Ur Specific [place] Urine Protein Urine Glucose (UA) Urine Ketones Urine Occult Blood Urine Nitrate Urine Bilirubin Urine Urobilinogen Ur Leukocyte Esterase Urine WBC Ur Squamous Epith Cells Micro UA Comment Urine Culture Comments - Imaging Impressions Chest X-Ray 05/14/18 07:47 CONCLUSION: 1. No acute cardiopulmonary disease. Abdomen/Pelvis CT 05/14/18 08:56 CONCLUSION: 1. Mildly distended gallbladder with probable trace pericholecystic fluid. Consider ultrasound examination for better evaluation of the gallbladder if there is persistent significant clinical concern. 2. Hepatic steatosis. 3. Colonic diverticulosis without evidence for diverticulitis. 4. Normal appendix. Gallbladder Ultrasound 05/14/18 09:58 CONCLUSION: 1. Diffuse gallbladder wall thickening. 2. Increased hepatic echogenicity, potentially indicative of steatosis. Caprini VTE Risk Assessment Caprini VTE Risk Assessment: Moderate/High Risk (score >= 2) Caprini Risk Assessment Model: Point Value = 1 Point Value = 2 Point Value = 3 Point Value = 5 Age 41-60 Minor surgery BMI > 25 kg/m2 Swollen legs Varicose veins or History of unexplained or recurrent spontaneous Oral contraceptives or hormone replacement Sepsis (< 1 month) Serious lung disease, including pneumonia (< 1 month) Abnormal pulmonary function Acute myocardial infarction Congestive heart failure (< 1 month) History of inflammatory bowel disease Medical patient at bed rest Age 61-74 Arthroscopic surgery Major open surgery (> 45 min) Laparoscopic surgery (> 45 min) Malignancy Confined to bed (> 72 hours) Immobilizing plaster cast Central venous access Age >= 75 History of VTE Family history of VTE Factor V Leiden Prothrombin 42702H Lupus anticoagulant Anticardiolipin antibodies Elevated serum homocysteine Heparin-induced thrombocytopenia Other congenital or acquired thrombophilia Stroke (< 1 month) Elective arthroplasty Hip, pelvis, or leg fracture Acute spinal cord injury (< 1 month) Prophylaxis Regimen: Total Risk Factor Score Risk Level Prophylaxis Regimen 0-1 Low Early ambulation 2 Moderate Order ONE of the following: *Sequential Compression Device (SCD) *Heparin 5000 units SQ BID 3-4 Higher Order ONE of the following medications: *Heparin 5000 units SQ TID *Enoxaparin/Lovenox 40 mg SQ daily (WT < 150 kg, CrCl > 30 mL/min) *Enoxaparin/Lovenox 30 mg SQ daily (WT < 150 kg, CrCl > 10-29 mL/min) *Enoxaparin/Lovenox 30 mg SQ BID (WT < 150 kg, CrCl > 30 mL/min) AND/OR *Sequential Compression Device (SCD) 5 or more Highest Order ONE of the following medications: *Heparin 5000 units SQ TID (Preferred with Epidurals) *Enoxaparin/Lovenox 40 mg SQ daily (WT < 150 kg, CrCl > 30 mL/min) *Enoxaparin/Lovenox 30 mg SQ daily (WT < 150 kg, CrCl > 10-29 mL/min) *Enoxaparin/Lovenox 30 mg SQ BID (WT < 150 kg, CrCl > 30 mL/min) AND *Sequential Compression Device (SCD) Assessment and Plan - Assessment (1) Cholecystitis Code(s): K81.9 - Cholecystitis, unspecified Status: Acute (2) Elevated liver enzymes Code(s): R74.8 - Abnormal levels of other serum enzymes Status: Acute (3) Abdominal pain Code(s): R10.9 - Unspecified abdominal pain Status: Acute - Plan 67-year-old male who presented the hospital because of severe abdominal pain. Acute cholecystitis -CT scan did indicate Mildly distended gallbladder with probable trace pericholecystic fluid. Consider ultrasound examination for better evaluation of the gallbladder if there is persistent significant clinical concern. Hepatic steatosis. -Gallbladder ultrasound indicated gallbladder wall thickening -ER physician did discuss with general surgery who recommended MRCP to be performed and GI consult -General surgery consultation and GI consultation has been requested -Awaiting MRCP for further plans -Keep n.p.o., IV fluids, pain control Liver enzyme elevation, hyperbilirubinemia -Likely secondary to acute cholecystitis, possible biliary obstruction -Liver enzymes values indicating an acute process -Awaiting MRCP for further delineation -Check hepatitis panel diabetes -Accu-Cheks with sliding scale insulin DVT prevention -Sequential compression devices
--- NOTE | 2018-05-14 16:06 | MR ---
EXAM DATE: 05/14/2018 3:44 PM EDT AGE/SEX: 67 years / Male INDICATIONS: Cholelithiasis. Abdomen pain for two day. CLINICAL DATA: This is the patient's initial encounter. Patient reports that signs and symptoms have been present for 2 days and indicates a pain score of 8/10. MEDICAL/SURGICAL HISTORY: Carcinoma, prostatic. Diabetes mellitus type II. . Shoulder sx, TMJ sx, Nose sx. COMPARISON: . TECHNIQUE: Multiplanar, multisequence images of the abdomen were obtained without contrast including dedicated cholangiographic images. FINDINGS: The intrahepatic ducts are normal in caliber. The right and left proper hepatic ducts are normal in c aliber. No stones are seen. The common hepatic duct and common bile duct are patent throughout their course. Maximum dimension of the common bile duct is 2.5 mm. No stones are seen. Examination of the gallbladder demonstrates gallbladder wall thickening with a small amount of perich olecystic fluid. Exam would raise the possibility of cholecystitis. No stones are seen within the gal lbladder. The appearance of the liver, spleen, pancreas, adrenal glands and kidneys is within normal limits. No free fluid is seen within the abdomen. No retroperitoneal adenopathy is identified. CONCLUSION: 1. No stones identified within the biliary system. The common bile duct is normal in caliber at 2.5 mm. 2. Abnormal appearance of the gallbladder with mild gallbladder wall thickening and pericholecystic fluid. In the appropriate clinical setting this would raise the concern for a possible cholecystitis Electronically signed by: Jorge L Cowan MD 05/14/2018 4:05 PM EDT
[2018-05-14] MEDS: Insulin NovoLOG Aspart Correctional Sugar Inj SQ SCH ×2 (17:39→21:39)
[2018-05-14 18:11] LABS: Baso # (Auto) 0.2 th/mm3 (0.0-0.2); Baso % (Auto) 1.4 % (0.0-2.0); Eos % (Auto) 0.2 % (0.0-4.0); Hematocrit 46.7 % (39.0-51.0); Lymph # (Auto) 0.3 th/mm3 (1.0-4.8); Lymph % (Auto) 3.2 % (9.0-44.0); Mean Corpuscular HGB Conc 34.3 % (32.0-36.0); Mean Corpuscular Hemoglobin 30.8 pg (27.0-34.0); Mean Corpuscular Volume 89.7 fL (80.0-100.0); Mean Platelet Volume 8.9 fL (7.0-11.0); Mono # (Auto) 0.6 th/mm3 (0.0-0.9); Mono % (Auto) 5.2 % (0.0-8.0); Neut # (Auto) 9.7 th/mm3 (1.8-7.7); Platelet Count 160 th/mm3 (150-450); Red Blood Count 5.21 mil/mm3 (4.50-5.90); Red Cell Distribution Width 13.6 % (11.6-17.2); White Blood Count 10.8 th/mm3 (4.0-11.0)
[2018-05-14] MEDS: Levofloxacin 500 mg Premix Inj 500 MG/100 ML PIGGYBACK IV.SIG SCH (18:42)
[2018-05-14] MEDS: Famotidine PF Inj 20 MG/2 ML Vial IV.PUSH SCH (20:49)
[2018-05-14 21:13] LABS: Hepatitis A IgM Antibody Nonreactive (Nonreactive); Hepatitits B Surface Antigen Nonreactive (Nonreactive)
[2018-05-14] MEDS ORDERED: Acetaminophen 325 MG Tablet PO PRN (21:26)
[2018-05-15 08:20] LABS: Chloride 106 meq/L (98-107); Potassium 3.7 meq/L (3.5-5.1); Sodium 140 meq/L (136-145)
[2018-05-15 08:39] LABS: Alanine Aminotransferase 660 U/L (12-78); Albumin 3.2 g/dL (3.4-5.0); Alkaline Phosphatase 123 U/L (45-117); Anion Gap 11 meq/L (5-15); Aspartate Aminotransferase 384 U/L (15-37); Blood Urea Nitrogen 19 mg/dL (7-18); Calcium 8.1 mg/dL (8.5-10.1); Carbon Dioxide 23.5 meq/L (21.0-32.0); Glomerular Filtration Rate 55 mL/min (>89); Glucose,Random 103 mg/dL (74-106); Total Protein 6.7 g/dL (6.4-8.2)
[2018-05-15] MEDS: Insulin NovoLOG Aspart Correctional Sugar Inj SQ SCH ×4 (08:49→21:17)
[2018-05-15] MEDS: Famotidine PF Inj 20 MG/2 ML Vial IV.PUSH SCH ×2 (08:50→21:18)
--- NOTE | 2018-05-15 11:20 | P.CONGS ---
[facility] Gen Surgery Consult Note Consult date: 05/15/18 Reason for consult: abdominal pain Narrative: Mr. Burrell is a 67 yo M with abdominal pain. He was awakened from sleep early Thursday morning with severe acute onset upper abdominal pain and nausea. He had salmon and rice for dinner the night before. No diarrhea. He drinks beer occasionally in moderation but did not have one . No previous abdominal surgeries. He was noted to have left shift on CBC and LFTS elevated including bilirubin 3. CT a/p showed mildly distended gallbladder with probable trace pericholecystic fluid. U/s gallbladder shows diffuse mild wall thickening but no visualized stones, and likely hepatic steatosis. MRCP ordered due to elevated LFTs in obstructive pattern shows no stone in the CBD and mildly abnormal gallbladder. Today transaminases and alk phos have decreased and bilirubin increased to 5. His pain persists but not as severely and he is hungry. Review of Systems All other systems reviewed negative except as stated in [facility] - History History Provided By: Patient - Medical History Medical History: Medical History (Last Updated 05/14/18 @ 14:10 by MACKENZIE Deleon) Diabetes GERD (gastroesophageal reflux disease) High cholesterol History of seizure - Surgical History Surgical History: Surgical History (Last Updated 05/14/18 @ 14:10 by MACKENZIE Deleon) History of rotator cuff surgery Status post correction of deviated nasal septum - Family History Family History: Family History (Last Updated 05/14/18 @ 14:11 by MACKENZIE Deleon) Mother History of pancreatic cancer Father History of heart disease History of diabetes mellitus - Tobacco History Second Hand Smoke Exposure: No Tobacco Use In Past 30 Days: No Smoking Status: Former smoker Tobacco Type: Cigarettes Number of Pack Years (if former smoker): 70 - Alcohol History How Often Do You Have a Drink Containing Alcohol: Monthly or less - Substance Use History Substance History: No History of Abuse - Travel History Recent Travel in the [place] Within the Last 8 Weeks: No Recent Travel Out of the Country Within the Last 8 Weeks: No - Immunization History Tetanus Immunization: Unsure Hx Influenza Vaccine This Season: Yes Medications and Allergies Active Medications: Active Medications Acetaminophen (Tylenol) 650 mg PO Q4H PRN PRN Reason: FEVER > 100.4 F Dextrose (D50w Vial) 50 ml IV.PUSH UNSCH PRN PRN Reason: PER HYPOGLYCEMIA PROTOCOL Famotidine (Pepcid Pf Inj) 20 mg IV.PUSH Q12HR [facility] Last Admin: 05/15/18 08:50 Dose: 20 mg Glucagon (Glucagon Inj) 1 mg OTHER PRN PRN PRN Reason: for Hypoglycemia Protocol Lactated Ringer's (Lr 1000 Ml Inj) 1,000 mls @ 125 mls/hr IV.CONT .Q8H [facility] Last Admin: 05/15/18 08:51 Dose: 125 mls/hr Metronidazole/Sodium Chloride (Flagyl 500 Mg Inj) 100 mls @ 100 mls/hr IV.SIG Q8H [facility] Last Admin: 05/15/18 08:50 Dose: 100 mls/hr Levofloxacin/Dextrose (Levaquin 500 Mg Premix Inj) 500 mg in 100 mls @ 100 mls/ hr IV.SIG Q24H [facility] Last Infusion: 05/14/18 20:48 Dose: Infused Insulin Aspart (Novolog Insulin Correctional Sugar Inj) 0 unit SQ ACHS [facility]; Protocol Last Admin: 05/15/18 08:49 Dose: Not Given Morphine Sulfate (Morphine Inj) 2 mg IV.PUSH Q3H PRN PRN Reason: PAIN SCALE 1 TO 10 Ondansetron HCl (Zofran Inj) 4 mg IV.PUSH Q6H PRN PRN Reason: NAUSEA OR VOMITING Sodium Chloride (Ns Flush) 2 ml IV.FLUSH BID [facility] Last Admin: 05/15/18 08:50 Dose: Not Given Sodium Chloride (Ns Flush) 2 ml IV.FLUSH PRN PRN PRN Reason: FLUSH AFTER USING IV ACCESS Allergies Allergy/AdvReac Type Severity Reaction Status Date / Time shellfish derived Allergy Severe Swelling Verified 05/14/18 07:20 of Lip/Tongue/Throat penicillin G Allergy Mild HIVES Verified 05/14/18 07:20 Home Medications Medication Instructions Recorded Confirmed Type aspirin [Aspirin Low Dose] 1 tab PO DAILY 05/14/18 05/14/18 History atorvastatin 10 mg PO DAILY 05/14/18 05/14/18 History canagliflozin [Invokana] 1 tab PO DAILY 05/14/18 05/14/18 History doxazosin 8 mg PO DAILY 05/14/18 05/14/18 History glimepiride 2 mg PO TID 05/14/18 05/14/18 History metformin 500 mg PO TID 05/14/18 05/14/18 History pantoprazole 40 mg PO DAILY 05/14/18 05/14/18 History Exam Vital signs: Vital Signs 05/14/18 12:33 05/14/18 13:56 05/14/18 15:37 Temperature 100.8 F H 100.8 F H Pulse Rate 96 H 95 H 95 H Respiratory Rate 18 18 18 Blood Pressure 139/74 154/73 H 154/73 H Pulse Oximetry 99 96 96 05/14/18 16:00 05/14/18 20:00 05/15/18 00:00 Temperature 100.4 F H 99.1 F Pulse Rate 94 H 93 H Respiratory Rate 18 16 16 Blood Pressure 139/73 135/65 Pulse Oximetry 95 95 05/15/18 07:31 05/15/18 11:10 Temperature 96.9 F L 98.2 F Pulse Rate 87 77 Respiratory Rate 20 20 Blood Pressure 123/66 118/68 Pulse Oximetry 95 95 Intake & Output 05/14/18 05/15/18 05/15/18 18:59 06:59 18:59 Intake Total 1460 / 1460 1200 / 1200 1000 / 1000 Output Total 550 / 550 650 / 650 Balance 910 / 910 550 / 550 1000 / 1000 Weight 74.3 kg 74.9 kg Intake: IV 1100 / 1100 1200 / 1200 1000 / 1000 LR 1000 mL Inj 1,000 ML @ 125 1000 / 1000 1000 / 1000 mls/hr IV.CONT .Q8H [facility] Rx#: [id number] Levaquin 500 mg Premix Inj 500 100 / 100 mg In 100 ml @ 100 mls/hr IV. SIG Q24H [facility] Rx#:[id number] NS Inj 1,000 ML @ Wide Open IV. 1000 / 1000 SIG BOLUS ONE Rx#:[id number] Flagyl 500 MG Inj 100 ML @ 100 100 / 100 100 / 100 mls/hr IV.SIG Q8H [facility] Rx#: [id number] Oral 360 / 360 Output: Urine 550 / 550 650 / 650 Other: # Voids 2 2 # Bowel Movements 0 Narrative: GENERAL: Awake and alert. No acute distress. Cooperative. HEAD: Normocephalic. Atraumatic. EYES: Pupils equal round and reactive to light bilaterally. No scleral icterus. ENT: Moist oral mucosa. NECK: Trachea midline. CHEST: Lungs clear to auscultation bilaterally with no wheezing or rhonchi. No respiratory distress. CARDIOVASCULAR: Regular rate and rhythm. ABDOMEN: Soft, very mild epigastric and RUQ ttp EXTREMITIES: No cyanosis or edema. SKIN: Warm, dry, nonjaundiced. Results - Labs 05/14/18 18:00 05/15/18 07:20 Abnormal lab results 05/14/18 05/14/18 05/14/18 Range/Units 13:16 17:30 18:00 Neut % (Auto) 90.0 H (16.0-70.0) % Lymph % (Auto) 3.2 L (9.0-44.0) % Neut # (Auto) 9.7 H (1.8-7.7) th/mm3 Lymph # (Auto) 0.3 L (1.0-4.8) th/mm3 BUN (7-18) mg/dL Estimated GFR (>89) mL/min POC Glucose 237 H 183 H (68-110) mg/dl Calcium (8.5-10.1) mg/dL Total Bilirubin (0.2-1.0) mg/dL AST (15-37) U/L ALT (12-78) U/L Alkaline Phosphatase (45-117) U/L Albumin (3.4-5.0) g/dL 05/14/18 05/15/18 Range/Units 20:06 07:20 Neut % (Auto) (16.0-70.0) % Lymph % (Auto) (9.0-44.0) % Neut # (Auto) (1.8-7.7) th/mm3 Lymph # (Auto) (1.0-4.8) th/mm3 BUN 19 H (7-18) mg/dL Estimated GFR 55 L (>89) mL/min POC Glucose 184 H (68-110) mg/dl Calcium 8.1 L D (8.5-10.1) mg/dL Total Bilirubin 5.2 H (0.2-1.0) mg/dL AST 384 H (15-37) U/L ALT 660 H (12-78) U/L Alkaline Phosphatase 123 H (45-117) U/L Albumin 3.2 L D (3.4-5.0) g/dL Diabetes panel 05/15/18 Range/Units 07:20 Sodium 140 (136-145) meq/L Potassium 3.7 (3.5-5.1) meq/L Chloride 106 (98-107) meq/L Carbon Dioxide 23.5 (21.0-32.0) meq/L BUN 19 H (7-18) mg/dL Creatinine 1.30 (0.60-1.30) mg/dL Calcium 8.1 L D (8.5-10.1) mg/dL AST 384 H (15-37) U/L ALT 660 H (12-78) U/L Alkaline Phosphatase 123 H (45-117) U/L Total Protein 6.7 D (6.4-8.2) g/dL Albumin 3.2 L D (3.4-5.0) g/dL Calcium panel 05/15/18 Range/Units 07:20 Calcium 8.1 L D (8.5-10.1) mg/dL Albumin 3.2 L D (3.4-5.0) g/dL Pituitary panel 05/15/18 Range/Units 07:20 Sodium 140 (136-145) meq/L Potassium 3.7 (3.5-5.1) meq/L Chloride 106 (98-107) meq/L Carbon Dioxide 23.5 (21.0-32.0) meq/L BUN 19 H (7-18) mg/dL Creatinine 1.30 (0.60-1.30) mg/dL Calcium 8.1 L D (8.5-10.1) mg/dL Adrenal panel 05/15/18 Range/Units 07:20 Sodium 140 (136-145) meq/L Potassium 3.7 (3.5-5.1) meq/L Chloride 106 (98-107) meq/L Carbon Dioxide 23.5 (21.0-32.0) meq/L BUN 19 H (7-18) mg/dL Creatinine 1.30 (0.60-1.30) mg/dL Calcium 8.1 L D (8.5-10.1) mg/dL Total Bilirubin 5.2 H (0.2-1.0) mg/dL AST 384 H (15-37) U/L ALT 660 H (12-78) U/L Alkaline Phosphatase 123 H (45-117) U/L Total Protein 6.7 D (6.4-8.2) g/dL Albumin 3.2 L D (3.4-5.0) g/dL All other labs normal. - Imaging CT scan - abdomen: report reviewed CT scan - pelvis: report reviewed US - abdomen: report reviewed Assessment and Plan - Assessment (1) Acute cholecystitis Code(s): K81.0 - Acute cholecystitis Status: Acute (2) Elevated liver enzymes Code(s): R74.8 - Abnormal levels of other serum enzymes Status: Acute - Plan He likely passed a stone through common duct. I would like to wait until LFTs are more normalized before offering an operation. Recheck in am.
--- NOTE | 2018-05-15 11:42 | P.PN ---
Subjective Interval history: 67-year-old male who is seen and examined today in follow-up for acute cholecystitis. Patient laying in bed comfortable. States that the pain is manageable. No new complaints. Patient is hungry and is asking to have diet. Vital signs are stable, patient remains afebrile. Physical Exam Vital signs: Vital Signs 05/14/18 12:33 05/14/18 13:56 05/14/18 15:37 Temperature 100.8 F H 100.8 F H Pulse Rate 96 H 95 H 95 H Respiratory Rate 18 18 18 Blood Pressure 139/74 154/73 H 154/73 H Pulse Oximetry 99 96 96 05/14/18 16:00 05/14/18 20:00 05/15/18 00:00 Temperature 100.4 F H 99.1 F Pulse Rate 94 H 93 H Respiratory Rate 18 16 16 Blood Pressure 139/73 135/65 Pulse Oximetry 95 95 05/15/18 07:31 05/15/18 11:10 Temperature 96.9 F L 98.2 F Pulse Rate 87 77 Respiratory Rate 20 20 Blood Pressure 123/66 118/68 Pulse Oximetry 95 95 Intake & Output 05/14/18 05/15/18 05/15/18 18:59 06:59 18:59 Intake Total 1460 / 1460 1200 / 1200 1000 / 1000 Output Total 550 / 550 650 / 650 Balance 910 / 910 550 / 550 1000 / 1000 Weight 74.3 kg 74.9 kg Intake: IV 1100 / 1100 1200 / 1200 1000 / 1000 LR 1000 mL Inj 1,000 ML @ 125 1000 / 1000 1000 / 1000 mls/hr IV.CONT .Q8H [facility] Rx#: [id number] Levaquin 500 mg Premix Inj 500 100 / 100 mg In 100 ml @ 100 mls/hr IV. SIG Q24H [facility] Rx#:[id number] NS Inj 1,000 ML @ Wide Open IV. 1000 / 1000 SIG BOLUS ONE Rx#:[id number] Flagyl 500 MG Inj 100 ML @ 100 100 / 100 100 / 100 mls/hr IV.SIG Q8H [facility] Rx#: [id number] Oral 360 / 360 Output: Urine 550 / 550 650 / 650 Other: # Voids 2 2 # Bowel Movements 0 Narrative: GENERAL: Well-developed, well-nourished, in no acute distress. alert and orientated HEENT: Head is normocephalic without any lesions or masses noted. Facial features are symmetric. Eyes: Extraocular muscles are intact. Conjunctivae were clear. NECK: Supple without any masses. Trachea midline no deviation. No JVD, CARDIAC: Regular rhythm, regular rate. S1/S2 are heard. No murmurs gallops or rubs. LUNGS: Clear to auscultation bilaterally. No wheeze, rhonchi or rales. No use of accessory muscles on inspiration or expiration. ABDOMEN: Soft, main tenderness is noted in the right upper quadrant. Negative Kaur.. Nondistended. Bowel sounds heard in all 4 quadrants. No organomegaly or masses. Negative rebound, negative guarding EXTREMITIES: No edema, pulses are equal bilaterally. No cyanosis or clubbing NEUROLOGY: Mood and affect appear appropriate. Cranial nerves II through XII grossly intact. Moving all extremities, speech is clear Results - Labs CBC & Chem 7: 05/14/18 18:00 05/15/18 07:20 Laboratory Results - last 24 hr 05/14/18 05/14/18 05/14/18 13:16 17:30 18:00 CBC w Diff Auto diff final WBC 10.8 RBC 5.21 Hgb 16.0 Hct 46.7 MCV 89.7 MCH 30.8 MCHC 34.3 RDW 13.6 Plt Count 160 MPV 8.9 Neut % (Auto) 90.0 H Lymph % (Auto) 3.2 L [place] % (Auto) 5.2 Eos % (Auto) 0.2 Baso % (Auto) 1.4 Neut # (Auto) 9.7 H Lymph # (Auto) 0.3 L [place] # (Auto) 0.6 Eos # (Auto) 0.0 Baso # (Auto) 0.2 WBC Differential . Differential Comment . Sodium Potassium Chloride Carbon Dioxide Anion Gap BUN Creatinine Estimated GFR POC Glucose 237 H 183 H Random Glucose Calcium Total Bilirubin AST ALT Alkaline Phosphatase Total Protein Albumin Hepatitis A IgM Ab Hep Bs Antigen Hep B Core IgM Ab Hep C IgG Ab 05/14/18 05/14/18 05/15/18 18:00 20:06 07:20 CBC w Diff WBC RBC Hgb Hct MCV MCH MCHC RDW Plt Count MPV Neut % (Auto) Lymph % (Auto) [place] % (Auto) Eos % (Auto) Baso % (Auto) Neut # (Auto) Lymph # (Auto) [place] # (Auto) Eos # (Auto) Baso # (Auto) WBC Differential Differential Comment Sodium 140 Potassium 3.7 Chloride 106 Carbon Dioxide 23.5 Anion Gap 11 BUN 19 H Creatinine 1.30 Estimated GFR 55 L POC Glucose 184 H Random Glucose 103 D Calcium 8.1 L D Total Bilirubin 5.2 H AST 384 H ALT 660 H Alkaline Phosphatase 123 H Total Protein 6.7 D Albumin 3.2 L D Hepatitis A IgM Ab Nonreactive Hep Bs Antigen Nonreactive Hep B Core IgM Ab Nonreactive Hep C IgG Ab Nonreactive 05/15/18 11:18 CBC w Diff WBC RBC Hgb Hct MCV MCH MCHC RDW Plt Count MPV Neut % (Auto) Lymph % (Auto) [place] % (Auto) Eos % (Auto) Baso % (Auto) Neut # (Auto) Lymph # (Auto) [place] # (Auto) Eos # (Auto) Baso # (Auto) WBC Differential Differential Comment Sodium Potassium Chloride Carbon Dioxide Anion Gap BUN Creatinine Estimated GFR POC Glucose 123 H Random Glucose Calcium Total Bilirubin AST ALT Alkaline Phosphatase Total Protein Albumin Hepatitis A IgM Ab Hep Bs Antigen Hep B Core IgM Ab Hep C IgG Ab - Imaging Impressions Gallbladder Ultrasound 05/14/18 09:58 CONCLUSION: 1. Diffuse gallbladder wall thickening. 2. Increased hepatic echogenicity, potentially indicative of steatosis. Cholangiopancreatography MRI 05/14/18 12:37 CONCLUSION: 1. No stones identified within the biliary system. The common bile duct is normal in caliber at 2.5 mm. 2. Abnormal appearance of the gallbladder with mild gallbladder wall thickening and pericholecystic fluid. In the appropriate clinical setting this would raise the concern for a possible cholecystitis Assessment and Plan - Assessment (1) Cholecystitis Code(s): K81.9 - Cholecystitis, unspecified Status: Acute (2) Elevated liver enzymes Code(s): R74.8 - Abnormal levels of other serum enzymes Status: Acute (3) Abdominal pain Code(s): R10.9 - Unspecified abdominal pain Status: Acute - Plan 67-year-old male who presented the hospital because of severe abdominal pain. Acute cholecystitis -CT scan did indicate Mildly distended gallbladder with probable trace pericholecystic fluid. Consider ultrasound examination for better evaluation of the gallbladder if there is persistent significant clinical concern. Hepatic steatosis. -Gallbladder ultrasound indicated gallbladder wall thickening -MRCP was performed did not indicate any obstructive process. -General surgery consultation and GI consultation has been requested -IV fluids, pain control -General surgery said may be able to start liquid diet -Awaiting liver enzymes were improved prior to surgical intervention Liver enzyme elevation, hyperbilirubinemia -Likely secondary to acute cholecystitis, possible biliary obstruction -Liver enzymes values indicating an acute process -Hepatitis panel was unremarkable for any viral hepatitis -Liver enzymes are improving, however bilirubin is still going up. diabetes -Accu-Cheks with sliding scale insulin DVT prevention -Sequential compression devices
[2018-05-15 14:52] LABS: Baso % (Auto) 0.6 % (0.0-2.0); Eos # (Auto) 0.2 th/mm3 (0.0-0.4); Eos % (Auto) 2.7 % (0.0-4.0); Hematocrit 45.9 % (39.0-51.0); Hemoglobin 15.6 gm/dL (13.0-17.0); Lymph # (Auto) 0.6 th/mm3 (1.0-4.8); Lymph % (Auto) 8.8 % (9.0-44.0); Mean Corpuscular HGB Conc 33.9 % (32.0-36.0); Mean Corpuscular Hemoglobin 31.3 pg (27.0-34.0); Mean Corpuscular Volume 92.2 fL (80.0-100.0); Mean Platelet Volume 8.9 fL (7.0-11.0); Mono # (Auto) 0.6 th/mm3 (0.0-0.9); Mono % (Auto) 8.6 % (0.0-8.0); Neut # (Auto) 5.2 th/mm3 (1.8-7.7); Neut % (Auto) 79.3 % (16.0-70.0); Platelet Count 132 th/mm3 (150-450); Red Blood Count 4.98 mil/mm3 (4.50-5.90); Red Cell Distribution Width 13.4 % (11.6-17.2); White Blood Count 6.6 th/mm3 (4.0-11.0)
[2018-05-15] MEDS: Levofloxacin 500 mg Premix Inj 500 MG/100 ML PIGGYBACK IV.SIG SCH (17:44)
[2018-05-15] MEDS ORDERED: Senna/Docusate Sodium 8.6/50 MG Tablet PO PRN (21:44)
[2018-05-15] MEDS ORDERED: Artificial Tears Opth Drops 15 ML Bottle EACH EYE PRN (21:44)
[2018-05-16 08:42] LABS: Chloride 106 meq/L (98-107); Potassium 3.8 meq/L (3.5-5.1); Sodium 139 meq/L (136-145)
[2018-05-16 08:46] LABS: Anion Gap 10 meq/L (5-15); Blood Urea Nitrogen 20 mg/dL (7-18); Calcium 8.2 mg/dL (8.5-10.1); Carbon Dioxide 23.3 meq/L (21.0-32.0); Glucose,Random 150 mg/dL (74-106)
[2018-05-16 08:49] LABS: Alanine Aminotransferase 423 U/L (12-78); Aspartate Aminotransferase 167 U/L (15-37)
[2018-05-16 08:50] LABS: Glomerular Filtration Rate 78 mL/min (>89)
[2018-05-16 08:57] LABS: Alkaline Phosphatase 154 U/L (45-117)
[2018-05-16 08:58] LABS: Total Protein 6.4 g/dL (6.4-8.2)
[2018-05-16 09:02] LABS: Baso # (Auto) 0.1 th/mm3 (0.0-0.2); Eos # (Auto) 0.2 th/mm3 (0.0-0.4); Eos % (Auto) 3.4 % (0.0-4.0); Hematocrit 44.2 % (39.0-51.0); Lymph # (Auto) 0.7 th/mm3 (1.0-4.8); Lymph % (Auto) 12.7 % (9.0-44.0); Mean Corpuscular Hemoglobin 30.3 pg (27.0-34.0); Mean Corpuscular Volume 89.3 fL (80.0-100.0); Mean Platelet Volume 9.7 fL (7.0-11.0); Mono # (Auto) 0.5 th/mm3 (0.0-0.9); Mono % (Auto) 9.9 % (0.0-8.0); Platelet Count 136 th/mm3 (150-450); Red Blood Count 4.95 mil/mm3 (4.50-5.90); Red Cell Distribution Width 13.8 % (11.6-17.2); White Blood Count 5.5 th/mm3 (4.0-11.0)
[2018-05-16] MEDS: Famotidine PF Inj 20 MG/2 ML Vial IV.PUSH SCH ×2 (09:16→23:13)
[2018-05-16] MEDS: Insulin NovoLOG Aspart Correctional Sugar Inj SQ SCH ×4 (09:16→23:17)
--- NOTE | 2018-05-16 10:38 | P.PN ---
Subjective Interval history: Patient seen and examined today for follow-up on cholecystitis. Patient states that he is doing well. Did have some pain over on his right upper quadrant last night. However it did resolve. Patient is very eager to pursue surgical intervention at this time. patient afebrile. Patient states that he is constipated. Physical Exam Vital signs: Vital Signs 05/15/18 11:10 05/15/18 15:08 05/15/18 20:00 Temperature 98.2 F 97.8 F 98.4 F Pulse Rate 77 79 76 Respiratory Rate 20 20 20 Blood Pressure 118/68 122/64 156/86 H Pulse Oximetry 95 95 97 05/16/18 00:00 05/16/18 04:00 05/16/18 07:38 Temperature 99 F 98.8 F 98.7 F Pulse Rate 75 71 74 Respiratory Rate 20 20 Blood Pressure 153/92 H 155/90 H 167/87 H Pulse Oximetry 96 96 96 Intake & Output 05/15/18 05/16/18 05/16/18 18:59 06:59 18:59 Intake Total 3020 / 3020 2100 / 2100 Output Total 575 / 575 Balance 3020 / 3020 1525 / 1525 Weight 75.1 kg Intake: IV 2300 / 2300 2100 / 2100 LR 1000 mL Inj 1,000 ML @ 125 2000 / 2000 2000 / 2000 mls/hr IV.CONT .Q8H [facility] Rx#: [id number] Levaquin 500 mg Premix Inj 500 100 / 100 mg In 100 ml @ 100 mls/hr IV. SIG Q24H [facility] Rx#:[id number] Flagyl 500 MG Inj 100 ML @ 100 200 / 200 100 / 100 mls/hr IV.SIG Q8H [facility] Rx#: [id number] Oral 720 / 720 0 / 0 Output: Urine 575 / 575 Other: # Voids 3 1 # Bowel Movements 1 Narrative: GENERAL: Well-developed, well-nourished, in no acute distress. alert and orientated HEENT: Head is normocephalic without any lesions or masses noted. Facial features are symmetric. Eyes: Extraocular muscles are intact. Conjunctivae were clear. NECK: Supple without any masses. Trachea midline no deviation. No JVD, CARDIAC: Regular rhythm, regular rate. S1/S2 are heard. No murmurs gallops or rubs. LUNGS: Clear to auscultation bilaterally. No wheeze, rhonchi or rales. No use of accessory muscles on inspiration or expiration. ABDOMEN: Soft, nontender. Negative Kaur.. Nondistended. Bowel sounds heard in all 4 quadrants. No organomegaly or masses. Negative rebound, negative guarding EXTREMITIES: No edema, pulses are equal bilaterally. No cyanosis or clubbing NEUROLOGY: Mood and affect appear appropriate. Cranial nerves II through XII grossly intact. Moving all extremities, speech is clear Results - Labs CBC & Chem 7: 05/16/18 07:15 05/16/18 07:15 Laboratory Results - last 24 hr 05/15/18 05/15/18 05/15/18 11:18 13:55 15:49 CBC w Diff Auto diff final WBC 6.6 RBC 4.98 Hgb 15.6 Hct 45.9 MCV 92.2 MCH 31.3 MCHC 33.9 RDW 13.4 Plt Count 132 L MPV 8.9 Neut % (Auto) 79.3 H Lymph % (Auto) 8.8 L [place] % (Auto) 8.6 H Eos % (Auto) 2.7 Baso % (Auto) 0.6 Neut # (Auto) 5.2 Lymph # (Auto) 0.6 L [place] # (Auto) 0.6 Eos # (Auto) 0.2 Baso # (Auto) 0.0 WBC Differential . Differential Comment . Sodium Potassium Chloride Carbon Dioxide Anion Gap BUN Creatinine Estimated GFR POC Glucose 123 H 225 H Random Glucose Calcium Total Bilirubin AST ALT Alkaline Phosphatase Total Protein Albumin 05/15/18 05/16/18 05/16/18 20:17 07:15 07:15 CBC w Diff Auto diff final WBC 5.5 RBC 4.95 Hgb 15.0 Hct 44.2 MCV 89.3 MCH 30.3 MCHC 34.0 RDW 13.8 Plt Count 136 L MPV 9.7 Neut % (Auto) 73.0 H Lymph % (Auto) 12.7 [place] % (Auto) 9.9 H Eos % (Auto) 3.4 Baso % (Auto) 1.0 Neut # (Auto) 4.0 Lymph # (Auto) 0.7 L [place] # (Auto) 0.5 Eos # (Auto) 0.2 Baso # (Auto) 0.1 WBC Differential . Differential Comment . Sodium 139 Potassium 3.8 Chloride 106 Carbon Dioxide 23.3 Anion Gap 10 BUN 20 H Creatinine 0.96 Estimated GFR 78 L POC Glucose 214 H Random Glucose 150 H Calcium 8.2 L Total Bilirubin 2.5 H AST 167 H ALT 423 H Alkaline Phosphatase 154 H Total Protein 6.4 Albumin 3.0 L 05/16/18 08:02 CBC w Diff WBC RBC Hgb Hct MCV MCH MCHC RDW Plt Count MPV Neut % (Auto) Lymph % (Auto) [place] % (Auto) Eos % (Auto) Baso % (Auto) Neut # (Auto) Lymph # (Auto) [place] # (Auto) Eos # (Auto) Baso # (Auto) WBC Differential Differential Comment Sodium Potassium Chloride Carbon Dioxide Anion Gap BUN Creatinine Estimated GFR POC Glucose 134 H Random Glucose Calcium Total Bilirubin AST ALT Alkaline Phosphatase Total Protein Albumin Assessment and Plan - Assessment (1) Cholecystitis Code(s): K81.9 - Cholecystitis, unspecified Status: Acute (2) Elevated liver enzymes Code(s): R74.8 - Abnormal levels of other serum enzymes Status: Acute (3) Abdominal pain Code(s): R10.9 - Unspecified abdominal pain Status: Acute - Plan 67-year-old male who presented the hospital because of severe abdominal pain. Acute cholecystitis -CT scan did indicate Mildly distended gallbladder with probable trace pericholecystic fluid. Consider ultrasound examination for better evaluation of the gallbladder if there is persistent significant clinical concern. Hepatic steatosis. -Gallbladder ultrasound indicated gallbladder wall thickening -MRCP was performed did not indicate any obstructive process. -General surgery consultation and GI consultation has been requested -IV fluids, pain control -General surgery started on liquid diet -Liver enzymes are trending down. Liver enzyme elevation, hyperbilirubinemia; improving -Likely secondary to acute cholecystitis, possible biliary obstruction -Liver enzymes values indicating an acute process -Hepatitis panel was unremarkable for any viral hepatitis Diabetes -Accu-Cheks with sliding scale insulin DVT prevention -Sequential compression devices
--- NOTE | 2018-05-16 11:40 | P.PNGS ---
Subjective Interval history: LFTs continue to improve. Pain improved. Physical Exam Vital signs: Vital Signs 05/15/18 15:08 05/15/18 20:00 05/16/18 00:00 Temperature 97.8 F 98.4 F 99 F Pulse Rate 79 76 75 Respiratory Rate 20 20 Blood Pressure 122/64 156/86 H 153/92 H Pulse Oximetry 95 97 96 05/16/18 04:00 05/16/18 07:38 05/16/18 11:27 Temperature 98.8 F 98.7 F 97.7 F Pulse Rate 71 74 74 Respiratory Rate 20 20 20 Blood Pressure 155/90 H 167/87 H 174/79 H Pulse Oximetry 96 96 94 L Intake & Output 05/15/18 05/16/18 05/16/18 18:59 06:59 18:59 Intake Total 3020 / 3020 2100 / 2100 Output Total 575 / 575 Balance 3020 / 3020 1525 / 1525 Weight 75.1 kg Intake: IV 2300 / 2300 2100 / 2100 LR 1000 mL Inj 1,000 ML @ 125 2000 / 2000 2000 / 2000 mls/hr IV.CONT .Q8H [facility] Rx#: [id number] Levaquin 500 mg Premix Inj 500 100 / 100 mg In 100 ml @ 100 mls/hr IV. SIG Q24H [facility] Rx#:[id number] Flagyl 500 MG Inj 100 ML @ 100 200 / 200 100 / 100 mls/hr IV.SIG Q8H [facility] Rx#: [id number] Oral 720 / 720 0 / 0 Output: Urine 575 / 575 Other: # Voids 3 1 # Bowel Movements 1 Narrative: NAD Abd: soft Assessment and Plan - Assessment (1) Acute cholecystitis Code(s): K81.0 - Acute cholecystitis Status: Acute (2) Elevated liver enzymes Code(s): R74.8 - Abnormal levels of other serum enzymes Status: Acute - Plan He likely passed a stone through common duct. LFTs continue to normalize. Recommend to proceed with laparoscopic cholecystectomy possible open tomorrow. Discussed surgery in detail with him including risks of common bile duct injury.
[2018-05-16] MEDS: Levofloxacin 500 mg Premix Inj 500 MG/100 ML PIGGYBACK IV.SIG SCH (17:45)
[2018-05-16] MEDS: Lisinopril 5 MG Tablet PO SCH (17:48)
[2018-05-17] MEDS ORDERED: Bupivacaine/Epinephrine Inj 0.25% 50 ML Vial ONE (06:38)
[2018-05-17 07:02] LABS: Chloride 107 meq/L (98-107); Potassium 3.7 meq/L (3.5-5.1); Sodium 140 meq/L (136-145)
[2018-05-17 07:10] LABS: Albumin 2.9 g/dL (3.4-5.0); Anion Gap 9 meq/L (5-15); Calcium 8.1 mg/dL (8.5-10.1); Carbon Dioxide 23.9 meq/L (21.0-32.0)
[2018-05-17 07:11] LABS: Alanine Aminotransferase 305 U/L (12-78); Aspartate Aminotransferase 82 U/L (15-37); Blood Urea Nitrogen 19 mg/dL (7-18); Glucose,Random 200 mg/dL (74-106)
[2018-05-17 07:13] LABS: Total Protein 6.2 g/dL (6.4-8.2)
[2018-05-17 07:14] LABS: Alkaline Phosphatase 183 U/L (45-117); Glomerular Filtration Rate 84 mL/min (>89)
[2018-05-17] MEDS ORDERED: Chlorhexidine Gluconate 2% 1 Pack (2 Cloths) TOPICAL SCH (07:45)
[2018-05-17] MEDS ORDERED: Sugammadex Inj 200 MG/2 ML Vial IV.PUSH ONE (07:49)
[2018-05-17] MEDS ORDERED: Sodium Chlor 0.9% Inj 500 ML IV.SIG SCH (08:00)
--- NOTE | 2018-05-17 09:06 | P.OP ---
- Preoperative Diagnosis (1) Acute cholecystitis - Postoperative Diagnosis (1) Acute cholecystitis Date of procedure: 05/17/18 Procedure: Laparoscopic cholecystectomy Anesthesia: CHELY Surgeon: Torito Brown MD Estimated blood loss (mL): 10 Pathology: other (gallbladder) Operation and Findings: Complications: None apparent EBL:10 Operative findings: acutely inflamed gallbladder with edematous thickened wall Procedure in detail: The patient was taken to the operating room and placed in the supine position. General endotracheal anesthesia was induced. The abdomen was prepped and draped in usual sterile fashion and a surgical timeout was performed to verify correct patient procedure and site. Appropriate perioperative antibiotics were administered. Local anesthetic was injected in the skin and subcutaneous tissue superior to the umbilicus and a 5 mm incision performed. The abdomen was entered using the [employer]view 5 mm trocar with direct laparoscopic visualization. The abdomen was then insufflated to 15 mmHg with CO2 gas which the patient tolerated well. Next a 12 mm port was placed in the epigastrium and two 5 mm ports in the right upper quadrant and right lateral abdomen. The patient was placed in reverse Trendelenburg position and turned slightly to the left. Attention was turned to the right upper quadrant and the dome of the gallbladder was grasped and retracted cephalad. The gallbladder was acutely inflamed with edematous wall. The infundibulum was retracted laterally to expose Calot's triangle. Blunt dissection and judicious use of electrocautery was used to expose the cystic duct and the cystic artery directly entering the gallbladder. Two clips were placed proximally on each of these structures and one distally and they were transected. The gallbladder was then removed from the liver bed using electrocautery. Hemostasis was achieved. The gallbladder was then removed from the abdomen using an Endo Catch bag. The clips were in place on the cystic duct and cystic artery stumps with no bleeding or bile leakage. At this point, the abdomen was allowed to desufflate and trochars were removed. The fascia at the 12 mm port site was closed with 0 Vicryl suture. Skin was closed with subcuticular 4-0 Monocryl as well as Dermabond. The patient tolerated the procedure well and was extubated and taken to PACU in stable condition. All sponge and instrument counts were correct.
[2018-05-17] MEDS: Insulin NovoLOG Aspart Correctional Sugar Inj SQ SCH ×2 (09:17→11:30)
[2018-05-17] MEDS: Famotidine PF Inj 20 MG/2 ML Vial IV.PUSH SCH (09:19)
[2018-05-17] MEDS: Lisinopril 5 MG Tablet PO SCH (09:20)
[2018-05-17] MEDS ORDERED: fentaNYL Citrate Inj 100 MCG/2 ML Ampul ONE (09:26)
--- NOTE | 2018-05-17 11:37 | P.DS ---
Date of admission: 05/14/18 12:42 Primary care physician: Lm Srivastava MD Attending physician on discharge: Nabil Wilburn Anticipated date of discharge: 05/17/18 Brief History from admission: 67-year-old male with known history of hyperlipidemia, diabetes who presented to the hospital because of acute onset abdominal pain. Patient states that he was in his normal state of health until last evening approximately 12 to 12:30 AM. When he got sudden onset abdominal pain located in the upper abdomen. Patient cannot lay flat, he states that the pain was so severe he had to get up and move around. It hurt whenever he walks. He cannot sit still. Pain was worse when he laid down. He did take 2 indigestion pills which did help with some of the discomfort. He was able to lay down to go to sleep. Then he was woke up at approximately 4 AM this morning with the severe pain again. Again it was a 8/10 on a pain scale where he could not get comfortable no matter what position he got his body into. He came to emergency department for evaluation. Patient was found to have abnormalities with elevated liver enzymes as well as signs of cholecystitis. ER physician did contact general surgery about the findings. They recommended that the patient undergo MRCP with GI consult for further evaluation and management. Upon seeing the patient he appears to be feeling much better. Pain is controlled. Patient denied any nausea, vomiting, diarrhea, constipation, melena, hematochezia. DS: Diagnosis - Discharge Diagnosis (1) Cholecystitis Status: Acute (2) Elevated liver enzymes Status: Acute (3) Abdominal pain Status: Acute DS: Medications - Discharge Medications Prescriptions: hydrocodone-acetaminophen [[place]] 1 tab PO Q6H PRN #12 tab PRN Reason: Acute Pain ketorolac 10 mg PO Q6H PRN #20 tab PRN Reason: Acute Pain lisinopril 5 mg PO DAILY #30 tab DS: Summary Hospital Course: 67-year-old male who originally presented to hospital with abdominal pain and found to have acute cholecystitis. Patient underwent treatment with IV antibiotics, IV fluid, general surgery consult. Patient had evaluation by general surgery who recommended cholecystectomy. However due to the patient's elevated liver enzymes is recommended that continue to follow the patient's hepatic functions until more stable to undergo surgical intervention. Patient tolerated treatment well. Pain was controlled. Liver enzymes are followed until stabilized. Patient did undergo laparoscopic cholecystectomy. Patient tolerated diet, pain controlled. General surgery indicated patient can be discharged. Patient was discharged in stable condition. - Time Spent with Patient Total time spent providing and/or coordinating discharge services: Less than 30 minutes - Quality: VTE Deep Vein Thrombosis/Pulmonary Embolism Present on Admission: No Exam Vital signs: Vital Signs 05/16/18 11:27 05/16/18 15:05 05/16/18 17:48 Temperature 97.7 F 98.1 F Pulse Rate 74 67 Respiratory Rate 20 20 Blood Pressure 174/79 H 164/80 H 162/80 H Pulse Oximetry 94 L 94 L 05/16/18 20:00 05/17/18 00:00 05/17/18 04:00 Temperature 97.5 F L 98.1 F 98.5 F Pulse Rate 61 59 L 57 L Respiratory Rate 20 20 20 Blood Pressure 176/86 H 196/95 H 191/97 H Pulse Oximetry 96 96 97 05/17/18 05:55 05/17/18 09:25 05/17/18 09:40 Temperature 97.9 F Pulse Rate 54 L 72 60 Respiratory Rate 18 16 16 Blood Pressure 182/86 H 158/75 H 148/72 H Pulse Oximetry 100 100 05/17/18 09:55 05/17/18 10:10 Temperature 97.9 F 97.9 F Pulse Rate 60 62 Respiratory Rate 16 16 Blood Pressure 158/76 H 148/63 H Pulse Oximetry 100 100 Intake & Output 05/16/18 05/17/18 05/17/18 18:59 06:59 18:59 Intake Total 2460 / 2460 3340 / 3340 1300 / 1300 Output Total 5 / 5 Balance 2460 / 2460 3340 / 3340 1295 / 1295 Weight 74.8 kg Intake: IV 1200 / 1200 3100 / 3100 1300 / 1300 LR 1000 mL Inj 1,000 ML @ 125 1000 / 1000 2900 / 2900 mls/hr IV.CONT .Q8H LEATHA Rx#: [id number] LR 1000 mL Inj 1,000 ML @ 30 1200 / 1200 mls/hr IV.SIG .Q24H LEATHA Rx#: [id number] Levaquin 500 mg Premix Inj 500 100 / 100 mg In 100 ml @ 100 mls/hr IV. SIG Q24H LEATHA Rx#:[id number] Flagyl 500 MG Inj 100 ML @ 100 200 / 200 100 / 100 100 / 100 mls/hr IV.SIG Q8H LEATHA Rx#: [id number] Oral 1260 / 1260 240 / 240 Output: Estimated Blood Loss 5 / Other: # Voids 5 3 Date of Last Bowel Movement 05/16/18 # Bowel Movements 1 Results Procedures completed during hospitalization: 05/17/18: laparoscopic cholecystectomy Pending studies at discharge: Pending at discharge 05/17/18 Surgical [PTH] Routine Labs on day of discharge: Labs from last 24 hours 05/17/18 05/17/18 05/16/18 07:38 06:20 23:05 Sodium 140 Potassium 3.7 Chloride 107 Carbon Dioxide 23.9 Anion Gap 9 BUN 19 H Creatinine 0.90 Estimated GFR 84 L POC Glucose 201 H 179 H Random Glucose 200 H Calcium 8.1 L Total Bilirubin 1.3 H AST 82 H ALT 305 H Alkaline Phosphatase 183 H Total Protein 6.2 L Albumin 2.9 L 05/16/18 05/16/18 17:12 11:53 Sodium Potassium Chloride Carbon Dioxide Anion Gap BUN Creatinine Estimated GFR POC Glucose 177 H 119 H Random Glucose Calcium Total Bilirubin AST ALT Alkaline Phosphatase Total Protein Albumin - Impressions ITS Impressions Chest X-Ray 05/14/18 07:47 CONCLUSION: 1. No acute cardiopulmonary disease. Abdomen/Pelvis CT 05/14/18 08:56 CONCLUSION: 1. Mildly distended gallbladder with probable trace pericholecystic fluid. Consider ultrasound examination for better evaluation of the gallbladder if there is persistent significant clinical concern. 2. Hepatic steatosis. 3. Colonic diverticulosis without evidence for diverticulitis. 4. Normal appendix. Gallbladder Ultrasound 05/14/18 09:58 CONCLUSION: 1. Diffuse gallbladder wall thickening. 2. Increased hepatic echogenicity, potentially indicative of steatosis. Cholangiopancreatography MRI 05/14/18 12:37 CONCLUSION: 1. No stones identified within the biliary system. The common bile duct is normal in caliber at 2.5 mm. 2. Abnormal appearance of the gallbladder with mild gallbladder wall thickening and pericholecystic fluid. In the appropriate clinical setting this would raise the concern for a possible cholecystitis Discharge Plan - Discharge Disposition Patient Disposition: 01 Discharge Home - Discharge Condition Condition: Stable - Discharge Order Discharge Orders: Discharge Order (Routine); Ordered 05/17/18 Ordered By: Renan Sorensen - Discharge Details Anticipated Discharge Date: 05/17/18 - Physicians Team Primary Care Provider: Lm Srivastava Attending Provider: Nabil Wilburn Other Providers: Torito Brown MD ; Nick Rivera MD
[2018-05-17] MEDS ORDERED: Lidocaine PF 1% Inj 5 ML Syringe INFILTRATN ONE (12:00)
[2018-05-17] MEDS ORDERED: Ketorolac Inj 30 MG/ML (IVP) Vial IV.PUSH ONE (12:00)
== END 2018-05-17 15:19 | disposition home or self-care (01) ==
LOC: PHED 07:13 → PHEDA 12:42 → PH3 14:59
PROVIDERS: ADMIT Family Medicine; ATTEND Family Medicine